=== PATIENT | female | born 1985 | race Caucasian/White ===

== ENCOUNTER 2022-06-09 14:57 | Emergency (ER) | payer OTHER, SELFPAY ==
[2022-06-09 15:12] VITALS: BP 122/78; PULSE 87; RESP 17; TEMP 36.6; O2SAT 99; BMI 27.4
--- NOTE | 2022-06-09 15:15 | DI.RAD.S_ITS ---
PROCEDURE: XR WRIST LT MIN 3V INDICATIONS: fall TECHNIQUE: 3 views of the wrist were acquired. COMPARISON: None. FINDINGS: Bones: Angulated, displaced, intra-articular fracture of the radial styloid. Mildly displaced ulnar styloid fracture. Scaphoid view: Unremarkable. Soft tissues: No suspicious soft tissue calcifications. Casting material overlies the wrist. IMPRESSION: 1. Angulated, displaced, intra-articular fracture of the radial styloid. 2. Mildly displaced ulnar styloid fracture. Dictated by: Zach Rodrigues M.D. on 06/09/2022 at 15:42 Approved by: Zach Rodrigues M.D. on 06/09/2022 at 15:43
--- NOTE | 2022-06-09 15:39 | ED_ITS ---
HPI - General Adult General Chief complaint: Extremity Injury, Upper Stated complaint: L wrist pain, sent from [facility] Time Seen by Provider: 06/09/22 15:19 Source: patient Mode of arrival: Ambulatory History of Present Illness HPI narrative: Patient is a 36-year-old female who was sent to the emergency department by walk-in clinic for concern of a left wrist fracture. The event occurred approximately 24 hours ago when she was rollerblading. It is deformed. She went to the walk-in clinic. They did not have x-ray capability. They put him in a volar splint and put her in a sling and sent her to the emergency department. She reports no other injuries from the event. Related Data Home Medications Medication Instructions Recorded Confirmed alprazolam 0.5 mg tablet 0.5 mg PO DAILY PRN Anxiety 06/09/22 06/09/22 sertraline 100 mg tablet 100 mg PO DAILY 06/09/22 06/09/22 Previous Rx's Medication Instructions Recorded hydrocodone 5 mg-acetaminophen 325 1 tab PO Q4-6H PRN pain #20 tabs 06/09/22 mg tablet Allergies Allergy/AdvReac Type Severity Reaction Status Date / Time No Known Drug Allergies Allergy Verified 06/09/22 15:14 Review of Systems Musculoskeletal Musculoskeletal: Reports system reviewed and no additional complaints, except as documented Integumentary/Breasts Skin/Breast: Reports system reviewed and no additional complaints, except as documented Neurologic Neurologic: Reports system reviewed and no additional complaints, except as documented Hematologic/Lymphatic On Anticoagulants: No Patient History Social History Smoking Status: Never smoker Smoking Status: Never smoker alcohol intake frequency: other Substance Use Type: does not use Exam Initial Vital Signs Initial Vital Signs: Vital Signs Temperature 98 F 06/09/22 15:12 Pulse Rate 87 06/09/22 15:12 Respiratory Rate 17 06/09/22 15:12 Blood Pressure 122/78 06/09/22 15:12 Pulse Oximetry 99 06/09/22 15:12 Oxygen Delivery Method Room Air 06/09/22 15:12 Const General: cooperative Cardio Pulses: radial pulses present on the left Skin General: no rashes or lesions noted Neuro General: patient alert, patient awake and moves all extremities Extrem General: normal to inspection and capillary refill normal Procedures Orthopedic Splinting/Casting Injury #1: Side: left Upper Extremity Injury Location: wrist Upper Extremity Immobilizer: sugar tong splint Post splinting neuro exam: intact Post splinting vascular exam: intact Placed by: Provider Course Orders Ordered: ED Orders 06/09/22 15:15 XR wrist LT min 3V Stat Discontinued Medications Hydromorphone HCl (Hydromorphone 1 Mg Inj) 1 mg IM NOW ONE Stop: 06/09/22 15:40 Last Admin: 06/09/22 15:52 Dose: 1 mg Documented By: AT Vital Signs Vital signs: Vital Signs - 8 hr 06/09/22 15:12 Temperature 98 F Pulse Rate 87 Respiratory Rate 17 Blood Pressure 122/78 Pulse Oximetry 99 Oxygen Delivery Method Room Air Medical Decision Making Imaging Data Extremity x-ray #1: Radiologist's Impression: PROCEDURE:? XR WRIST LT MIN 3V ? INDICATIONS: fall ? TECHNIQUE:? 3 views of the wrist were acquired.? ? COMPARISON:? None. ? FINDINGS:? ? Bones:? Angulated, displaced, intra-articular fracture of the radial styloid.? Mildly displaced ulnar styloid fracture. ? Scaphoid view:? Unremarkable. ? Soft tissues:? No suspicious soft tissue calcifications.? Casting material overlies the wrist. ? IMPRESSION:? 1. Angulated, displaced, intra-articular fracture of the radial styloid. 2. Mildly displaced ulnar styloid fracture. MDM Narrative Medical decision making narrative: Patient is neurovascularly intact. Does have a distal radius fracture. She was splinted. Will send home with pain medication. Given instructions for follow- up. She was given return precautions. She expressed understanding and agreement. Discharge Plan Departure Patient Disposition: Home Clinical Impression: Fracture of wrist Instructions: DI for Wrist Fracture, How to Take Care of Your Splint Prescriptions: New hydrocodone-acetaminophen 5-325 mg tablet 1 tab PO Q4-6H PRN (Reason: pain) Qty: 20 0RF No Action sertraline 100 mg tablet 100 mg PO DAILY alprazolam 0.5 mg tablet 0.5 mg PO DAILY PRN (Reason: Anxiety) Referrals: Romulo Tripathi MD [Primary Care Provider] - Stand Alone Forms: Patient Portal/API
[2022-06-09] MEDS: HYDROMORPHONE 1 MG INJ IM (15:52)
[2022-06-09] MEDS: HYDROCODONE/ACET 5/325 TABLET 1 TAB PO (18:02)
[2022-06-09 18:03] VITALS: BP 133/63; PULSE 84; RESP 18; O2SAT 99
== END 2022-06-09 18:04 | disposition home or self-care (01) ==
PROVIDERS: Emergency Provider Emergency Medicine; PCP Internal Medicine
DX: S52.502A Unspecified fracture of the lower end of left radius, initial encounter for closed fracture (principal); X58.XXXA Exposure to other specified factors, initial encounter; Y93.51 Activity, roller skating (inline) and skateboarding
CPT/HCPCS: 29125; 73110; 96372; 99283; 99284; J1170

== ENCOUNTER 2022-06-23 12:33 | Day surgery (SDC) | payer OTHER, SELFPAY ==
[2022-06-17 08:22] VITALS: BMI 27.1
[2022-06-23] VITALS (11 sets, daily range): BP systolic 118–136; BP diastolic 77–100; PULSE 53–100; RESP 11–25; TEMP 36.3–36.5; O2SAT 95–100; BMI 27.4
[2022-06-23] MEDS: LACTATED RINGERS 1,000 ML 42 ML IV ×2 (13:12→14:47)
--- NOTE | 2022-06-23 13:55 | PM.PREOP ---
Pre-operative Note COVID-19 COVID-19 status: Negative Interval Note History & Physical reviewed/Exam performed by Physician: Yes Changes to H&P: No
--- NOTE | 2022-06-23 13:56 | P.OP_ITS ---
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 She noted the acute onset of left wrist pain and deformity. She went on spring break with her family and now has returned and would like to proceed with the open reduction internal fixation of her wrist. Surgeon: Miri Aguiar Click Yes if Unassisted: Yes Anesthesia Type: General Operative Notes Findings: Comminuted left distal radius fracture, acceptable reduction and fixation Closure Type: primary Specimen(s): none sent Prosthetic devices, grafts, tissues, transplants, or devices: Arthrex distal radius volar plate Estimated Blood Loss (mL): 100 Blood products transfused: none Procedure in detail: She was brought to the operating room and underwent induction of a general anesthesia. Her left upper extremity was prepped draped standard sterile fashion. High-thigh tourniquet was applied and elevated to 250 mmHg. A time- out was performed. She a volar skin incision was made along the radial side of the distal radius dissection was carried out through skin and subcutaneous tissues. Flexor carpi radialis was carefully mobilized and protected. Neurovascular bundle was protected. Incision was made on the volar aspect of the FCR sheath dissection was carried out down to the distal radius. The muscle was meticulously stiff stripped the distal radius. Fracture was then carefully reduced. An Arthrex volar plate was placed on the volar aspect of the radius. Her fracture was significantly displaced and shortened. It had started forming callus and healing. I used a combination of a dental pick a [place] and a knife to meticulously free the fracture fragments in order to restore length volar tilt and radial inclination. The fracture was meticulously reduced. A single screw and was placed in the plate and a pin was placed in the distal fragment with careful attention at avoiding the articular surface. Plate position was confirmed with an AP and lateral image. Mini C-arm was used. I meticulously adjusted the plate and worked hard to get best possible right radius reduction. The plate was then filled using standard technique. AP and lateral image confirmed position of the plate reduction of the fracture. The wound was meticu lously irrigated with normal saline. Final images were obtained. The muscle was carefully reapproximated. The wound was closed with interrupted Vicryl and nylon. She was placed in a left wrist splint. She tolerated the procedure well. Complications: none Post-operative Condition: stable Disposition: Acute Care Plan for aftercare: Splint with transition to short-arm cast at postop follow-up, range of motion for the fingers and elbow, follow up with PA in 10-14 days with x-rays out of splint and suture removal.
[2022-06-23] MEDS: CEFAZOLIN 2 GM/100 ML PREMIX 100 ML IV (14:18)
--- NOTE | 2022-06-23 14:36 | SUR.OPER ---
Supine on padded OR bed, head on pillow, right arm secured on padded arm boards at <90 degrees abduction, Left arm on padded arm board extension and in control of the Surgeon. legs uncrossed, safety belt at thigh, tape over blanket over lower legs. Gel pad under bilateral heels.
[2022-06-23] MEDS: BUPIVACAINE 0.25% (PF) VIAL 20 ML INJ (15:30)
[2022-06-23] MEDS: ACETAMINOPHEN 325 MG TABLET PO ×2 (16:12→16:49)
[2022-06-23] MEDS: OXYCODONE IR 5 MG TABLET PO ×2 (16:13→16:49)
[2022-06-23] MEDS: HYDROMORPHONE 2 MG INJ IV ×4 (16:23→16:45)
[2022-06-23] MEDS: ONDANSETRON 4 MG/2 ML INJ IV ×2 (16:25→16:49)
--- NOTE | 2022-06-23 16:54 | SUR.PHASEI ---
Report given to Hema
== END 2022-06-23 18:30 | disposition home or self-care (01) ==
PROVIDERS: PCP Internal Medicine; Referring Provider Orthopaedic Surgery; Visit Provider Orthopaedic Surgery
PROC: (CPT 25515; principal; 2022-06-23 14:00)
DX: S52.592A Other fractures of lower end of left radius, initial encounter for closed fracture (principal); S52.612A Displaced fracture of left ulna styloid process, initial encounter for closed fracture; W18.39XA Other fall on same level, initial encounter; Y93.51 Activity, roller skating (inline) and skateboarding; F32.A Depression, unspecified
CPT/HCPCS: 25515; C1713; J0690; J1100; J1170; J1885; J2250; J2405; J2704; J3010; J3490

== ENCOUNTER → 2024-05-13 09:35 | Outpatient (CLI) | payer OTHER, SELFPAY ==
--- NOTE | 2024-05-13 09:36 | DI.MG.S_ITS ---
BILATERAL DIGITAL DIAGNOSTIC MAMMOGRAM 3D/2D: 05/13/2024 CLINICAL: Bilateral axillary lumps. Baseline exam. No prior exams were available for comparison. The breasts are heterogeneously dense, which may obscure small masses (category c / 51-75% glandular tissue). No significant masses, calcifications, or other findings are seen in either breast. Specifically, no finding to correspond to the patient's palpable abnormalities in both axilla. Bilateral mammograms are negative. IMPRESSION: INCOMPLETE: NEED ADDITIONAL IMAGING EVALUATION Bilateral mammograms are normal. There are no abnormalities seen in either axilla to correspond with the palpable nodularities in axillae. Ultrasound is recommended for full evaluation of these areas. This was performed immediately following this exam. Based on the Tyrer Cuzick model (a risk assessment model) the patient's lifetime risk is 13.9% and her 10 year risk is 1.4%. According to the ACR, ACS, and NCCN guidelines, an annual breast MRI exam along with mammogram is recommended if the patient's lifetime risk is 20% or greater. This exam was interpreted at Station ID: [id number]. NOTE: For mammograms, a report in lay terms will be sent to the patient. Approximately 15% of breast malignancies will not be visualized mammographically. In the management of a palpable breast mass, a negative mammogram must not discourage biopsy of a clinically suspicious lesion. Electronically Signed By: Livier wolfe/:05/13/2024 10:37:59 letter sent: Additional Imaging Needed ACR BI-RADS Category 0: Incomplete: Need Additional Imaging Evaluation
--- NOTE | 2024-05-13 09:37 | DI.US.S_ITS ---
ULTRASOUND OF RIGHT AXILLA: 05/13/2024 CLINICAL: Palpable right axillary lump and pain. Comparison is made to exam dated: 05/13/2024 mammogram - [facility]. Color flow and real-time ultrasound of the right axilla were performed. Jacobson scale images of the real-time examination were reviewed. There are a few tiny intradermal foci of hypoechogenicity thickening the skin in the area of concern in the right axilla. No tract to the skin surface, but color doppler flow shows inccreased blood flow to the skin in the region. No underlying lesions in the breast tissue or axillary soft tissue. IMPRESSION: NEGATIVE Axillary pain and palpable abnormalities correspond to thickened skin with intradermal hypoechoic foci, likely folliculitis, cellulitis, sebaceous cysts, or granulomas. Clinical follow up is recommended for symptoms as needed. There is no sonographic evidence of malignancy. A 2 year screening mammogram is recommended. Findings and recommendations were conveyed to the patient at time of exam. This exam was interpreted at Station ID: [id number]. Electronically Signed By: Livier wolfe/:05/13/2024 13:45:47 Entry: beth - 05/16/2024 08:50:37 ACR BI-RADS Category 1: Negative
--- NOTE | 2024-05-13 09:37 | DI.US.S_ITS ---
ULTRASOUND OF LEFT AXILLA: 05/13/2024 CLINICAL: Palpable left breast lump and focal pain. Comparison is made to exam dated: 05/13/2024 mammogram - [facility]. Color flow and real-time ultrasound of the left axilla were performed. There is thickened skin without focal intradermal lesion in the left axilla that correlates with palpable abnormality and reported pain. No other sonographic findings. IMPRESSION: NEGATIVE Slightly thickened axillary skin without abnormality. Clinical follow up is recommended for symptoms as needed. There is no sonographic evidence of malignancy. A 2 year screening mammogram is recommended. Findings and recommendations were conveyed to the patient at time of exam. This exam was interpreted at Station ID: [id number]. Electronically Signed By: Livier wolfe/:05/13/2024 13:49:32 letter sent: Normal Exam ACR BI-RADS Category 1: Negative
== END ==
PROVIDERS: PCP Internal Medicine; Referring Provider Internal Medicine; Visit Provider Internal Medicine
DX: R92.8 Other abnormal and inconclusive findings on diagnostic imaging of breast (principal); R92.333 Mammographic heterogeneous density, bilateral breasts
CPT/HCPCS: 76882; 77066; G0279